=== PATIENT | male | born 1965 | race Two or more races ===

== ENCOUNTER 2016-12-20 07:32 | Inpatient (IN) | payer SELFPAY ==
[~2016-12-20] VITALS: Ht 172.7 cm; Wt 99.9 kg
[2016-12-20 11:10] LABS: CALCIUM 8.9 mg/dL (8.5-10.1); CARBON DIOXIDE 29.2 mmol/L (21-32); CHLORIDE SERUM 104 mmol/L (98-107); CREATININE SERUM 1.2 mg/dL (0.7-1.3); GFR1 > 60 mL/min; GLUCOSE SERUM 109 mg/dL (74-106); POTASSIUM SERUM 3.9 mmol/L (3.5-5.1); SODIUM SERUM 140 mmol/L (136-145)
[2016-12-20 11:16] LABS: BASOPHIL % 1.1 % (0-2); PLATELET COUNT 202 x10^3mcL (130-400); RED CELL DISTRIBUTION WIDTH 12.9 % (11.5-14.5)
[2016-12-20 14:58] LABS: microscopic required? NO
[2016-12-20 15:11] LABS: UA SPECIFIC GRAVITY <=1.005 (1.005-1.035)
[2016-12-20 15:12] LABS: urine erythrocyte NEGATIVE (NEGATIVE)
[2016-12-20 15:36] LABS: MAGNESIUM 2.1 mg/dL (1.8-2.4); PHOSPHOROUS 2.5 mg/dL (2.5-4.9)
[2016-12-20 15:37] LABS: CHOLESTEROL/HDL RATIO 4.6
[2016-12-20 15:46] LABS: FREE T4 1.1 ng/dL (0.76-1.46); FREE THYROXINE INDEX 2.6 ug/dL (1.4-4.5); T4(THYROXINE) 7.1 ug/dL (4.7-13.3)
[2016-12-20 15:47] LABS: T3 TOTAL 0.81 ng/mL
[2016-12-20 16:51] VITALS: BP 123/64
[2016-12-20 19:08] LABS: AMPHETAMINE QUAL UR NONE DETECTED (NEG <=1000)
[2016-12-20 21:27] VITALS: BP 124/63
[2016-12-21 05:21] VITALS: BP 103/67
[2016-12-21 06:19] LABS: BASOPHIL % 0.2 % (0-2); PLATELET COUNT 208 x10^3mcL (130-400); RED CELL DISTRIBUTION WIDTH 12.7 % (11.5-14.5)
[2016-12-21 07:59] LABS: CALCIUM 8.6 mg/dL (8.5-10.1); CARBON DIOXIDE 26 mmol/L (21-32); CHLORIDE SERUM 104 mmol/L (98-107); CREATININE SERUM 1.2 mg/dL (0.7-1.3); GFR1 > 60 mL/min; GLUCOSE SERUM 109 mg/dL (74-106); POTASSIUM SERUM 4.2 mmol/L (3.5-5.1); SODIUM SERUM 139 mmol/L (136-145)
[2016-12-21 11:05] VITALS: BP 132/79
[2016-12-21 15:32] VITALS: BP 103/64
[2016-12-21 16:56] VITALS: BP 112/63
[2016-12-21 16:57] VITALS: BP 112/63
[2016-12-21 19:20] VITALS: BP 111/64
[2016-12-22 06:23] VITALS: BP 120/78
[2016-12-22 06:56] LABS: PLATELET COUNT 242 x10^3mcL (130-400); RED CELL DISTRIBUTION WIDTH 12.8 % (11.5-14.5)
[2016-12-22 07:13] LABS: CARBON DIOXIDE 24.8 mmol/L (21-32); CHLORIDE SERUM 105 mmol/L (98-107); CREATININE SERUM 1.2 mg/dL (0.7-1.3); GFR1 > 60 mL/min; GLUCOSE SERUM 124 mg/dL (74-106); MAGNESIUM 2.2 mg/dL (1.8-2.4); POTASSIUM SERUM 4.4 mmol/L (3.5-5.1); SODIUM SERUM 138 mmol/L (136-145)
[2016-12-22 07:47] LABS: BAND NEUTROPHIL 2 % (0-10); BASOPHIL 0 % (0-2); MONOCYTE 5 % (0-7); SEGMENTED NEUTROPHILS 80 % (37-75)
[2016-12-22 09:04] VITALS: BP 116/74
[2016-12-22 12:31] VITALS: BP 135/83
[2016-12-22 17:50] VITALS: BP 132/88
[2016-12-22 21:01] VITALS: BP 98/61
[2016-12-23 06:01] VITALS: BP 110/74
[2016-12-23 06:40] LABS: BASOPHIL % 0.4 % (0-2); PLATELET COUNT 227 x10^3mcL (130-400); RED CELL DISTRIBUTION WIDTH 12.7 % (11.5-14.5)
[2016-12-23 07:23] LABS: CALCIUM 8.4 mg/dL (8.5-10.1); CARBON DIOXIDE 28.5 mmol/L (21-32); CREATININE SERUM 1.4 mg/dL (0.7-1.3); MAGNESIUM 1.8 mg/dL (1.8-2.4); POTASSIUM SERUM 4.4 mmol/L (3.5-5.1)
[2016-12-23 09:36] VITALS: BP 126/81
[2016-12-23] MEDS ORDERED: CLINDAMYCIN HC300 MG PO (10:40)
[2016-12-23] MEDS ORDERED: LAC PO (10:41)
[2016-12-23] MEDS ORDERED: COLACE100 MG PO (10:41)
[2016-12-23 12:05] VITALS: BP 126/81
[2016-12-23] MEDS ORDERED: NORCO1 TA2 PO (12:21)
== END 2016-12-23 13:45 | disposition home or self-care (01) | DRG 346 ==
LOC: ED 07:32 → DU 14:26
PROVIDERS: Emergency Medicine Emergency Medical Services; Surgery; ADMIT Family Medicine
PROC: 0D9P0ZZ Drainage of Rectum, Open Approach (ICD-10-PCS; principal; 2016-12-21 09:00)
DX: K61.1 Rectal abscess (principal); F17.200 Nicotine dependence, unspecified, uncomplicated; F10.20 Alcohol dependence, uncomplicated; Y90.9 Presence of alcohol in blood, level not specified; D64.9 Anemia, unspecified; E78.5 Hyperlipidemia, unspecified; R73.03 Prediabetes
CPT/HCPCS: 82962; 84439; J0690; J0744; J2250; J2270; J2405; J2704; J3010; J3490; J7030; J7040; J7120; Q9967